=== PATIENT | male | born 1990 | race Caucasian/White ===

== ENCOUNTER 2020-07-07 13:28 | Emergency (ER) | payer OTHER ==
[2020-07-07] MEDS ORDERED: BUFFERED LIDOCAINE 10 ML SYRINGE IU ONE (13:43)
[2020-07-07] MEDS ORDERED: BACITRACIN ZINC OINT 1 PACKET TOP STA (14:39)
--- NOTE | 2020-07-07 14:39 | ED Physician Documentation ---
PD HPI UPPER EXT INJURY - Stated complaint Stated Complaint: LT THUMB LAC - Chief complaint Chief Complaint: Laceration - History obtained from History obtained from: Patient - Additonal information Additional information: Pt comes to ED with CC of L thumb lac with a router. No other injuries. No numbness, tingling, or loss of motion. Pt is R-handed. Tetanus UTD. Incident happened today. Review of Systems Ten Systems: 10 systems reviewed and negative Constitutional: reports: Reviewed and negative Eyes: reports: Reviewed and negative Ears: reports: Reviewed and negative Nose: reports: Reviewed and negative Throat: reports: Reviewed and negative Cardiac: reports: Reviewed and negative Respiratory: reports: Reviewed and negative GI: reports: Reviewed and negative : reports: Reviewed and negative Skin: reports: Laceration (s) Musculoskeletal: reports: Reviewed and negative Neurologic: reports: Reviewed and negative Psychiatric: reports: Reviewed and negative Endocrine: reports: Reviewed and negative Immunocompromised: reports: Reviewed and negative PD PAST MEDICAL HISTORY - Past Medical History Past Medical History: No - Past Surgical History Past Surgical History: Yes - Present Medications Home Medications: Ambulatory Orders Medication Instructions Recorded Confirmed No Known Home Medications 07/07/20 07/07/20 - Allergies Allergies/Adverse Reactions: Allergies Allergy/AdvReac Type Severity Reaction Status Date / Time latex Allergy Anaphylaxis Verified 07/07/20 13:40 - Social History Does the pt smoke?: No Smoking Status: Never smoker Does the pt drink ETOH?: Yes ETOH Use: Liquor Does the pt have substance abuse?: No - Immunizations Immunizations are current?: Yes - POLST Patient has POLST: No PD ED PE NORMAL - Vitals Vital signs reviewed: Yes - General General: Alert and oriented X 3, No acute distress, Well developed/nourished - HEENT HEENT: Atraumatic, PERRL, EOMI, Moist mucous membranes - Neck Neck: Supple, no meningeal sign - Cardiac Cardiac: Strong equal pulses - Respiratory Respiratory: No respiratory distress - Derm Derm: Normal color, Warm and dry, No rash, Other (3.5 cm laceration/tissue avulsion on radial aspect of L thumb. Bleeding controlled. No FB. No tendon involvement.) - Extremities Extremities: No deformity, No edema, Other (ROM L thumb mildly limited, secondary to pain.) - Neuro Neuro: Alert and oriented X 3, No motor deficit, No sensory deficit - Psych Psych: Normal mood, Normal affect Results - Vitals Vitals: Vital Signs - 24 hr 07/07/20 07/07/20 13:34 14:57 Temperature 37.0 C Heart Rate 111 H 88 Respiratory 16 18 Rate Blood Pressure 141/88 H 128/76 O2 Saturation 100 98 Oxygen O2 Source Room air Procedures - Laceration (location) L thumb Length in cm: 3.5 Wound type: Linear (Roughly linear, with some irregularity), Into subcut fat, Clean. No: Exposure of bone, Exposure of other neurovascular structure Neurovascular status: Sensory intact, Motor intact, Vascular intact Tendon involvement: No: Tendon Injury Anesthesia: Lidocaine 1% Wound preparation: Hibiclens, Irrigated copiously NS, Debrided moderately, Wound explored, To the base. No: FB identified Skin layer closure: Nylon, Interrupted, Size #-0 - enter number (4.0), Sutures - enter # (11) Other: Patient tolerated well, No complications, Neurovascular intact, Dressing applied, Tetanus UTD PD MEDICAL DECISION MAKING - ED course Complexity details: considered differential, d/w patient ED course: Pt's wound was repaired as above, with good approximation of wound edges, despite tissue and skin avulsion. We have discussed home wound management, and the need for a little longer course of sutures (10 days), based on the nature of the wound. We have discussed the usual indications for return. Departure - Departure Disposition: 01 Home, Self Care Clinical Impression: Laceration Condition: Stable Instructions: ED Laceration Hand Comments: Keep your wound clean and dry in general. You may let water and soap run over the wound, but please do not rub, scrub, or immerse the wound until sutures are removed. This is to prevent infection. The sutures should be kept in place for at least 10 days, due to the tissue loss you have sustained from your injury. Please have your wound checked in 10 days, at which time your physician may remove the sutures if they feel that the wound is sufficiently healed. If you develop redness or swelling spreading progressively away from the wound, you should have the wound rechecked immediately. Forms: Activity restrictions Discharge Date/Time: 07/07/20 14:59
[2020-07-07 14:58] VITALS: BP 128/76
== END 2020-07-07 14:59 | disposition home or self-care (01) ==
LOC: ED 13:28
DX: S61.012A Laceration without foreign body of left thumb without damage to nail, initial encounter (principal); W31.2XXA Contact with powered woodworking and forming machines, initial encounter; Y93.89 Activity, other specified
CPT/HCPCS: 12002; 99282; A9270

== ENCOUNTER 2021-07-07 08:00 | Outpatient (CLI) | payer OTHER ==
[2021-07-07 18:10] LABS: BASOPHILS % (AUTO) 0.6 %; EOSINOPHILS # (AUTO) 0.4 10^3/uL (0.0-0.7); EOSINOPHILS % (AUTO) 7.5 %; HCT - HEMATOCRIT 42.4 % (42.0-52.0); HGB - HEMOGLOBIN 14.8 g/dL (14.0-18.0); LYMPHOCYTES # (AUTO) 1.5 10^3/uL (1.5-3.5); LYMPHOCYTES % (AUTO) 29.7 %; MEAN CORPUSCULAR HEMOGLOBIN 29.6 pg (27.0-31.0); MEAN CORPUSCULAR HGB CONC 34.9 g/dL (32.0-36.0); MEAN CORPUSCULAR VOLUME 84.8 fL (80.0-94.0); MEAN PLATELET VOLUME 11.1 fL (7.4-11.4); MONOCYTES # (AUTO) 0.7 10^3/uL (0.0-1.0); MONOCYTES % (AUTO) 14.7 %; NEUTROPHILS # (AUTO) 2.3 10^3/uL (1.5-6.6); NEUTROPHILS % (AUTO) 47.3 %; PLT - PLATELET COUNT 183 10^3/uL (130-450); RED CELL DISTRIBUTION WIDTH 12.1 % (12.0-15.0)
[2021-07-07 18:51] LABS: ALBUMIN 4.7 g/dL (3.2-5.5); ALBUMIN/GLOBULIN RATIO 1.9 (1.0-2.2); BILIRUBIN,TOTAL 0.6 mg/dL (0.2-1.0); CALCIUM 9.2 mg/dL (8.5-10.3); CREATININE 0.9 mg/dL (0.6-1.2); POTASSIUM 3.7 mmol/L (3.5-5.0); TOTAL PROTEIN 7.2 g/dL (6.7-8.2)
== END 2021-07-07 23:59 ==
LOC: LAB.N 08:00
PROVIDERS: ATTEND Nurse Practitioner
DX: R19.7 Diarrhea, unspecified (principal)
CPT/HCPCS: 36415; 80053; 80061; 83721; 85025